=== PATIENT | female | born 1965 | race Caucasian/White ===

== ENCOUNTER 2019-01-22 02:44 | Emergency (ER) | payer SELFPAY ==
[2019-01-22 03:22] LABS: %Eosinophils 4.3 % (0.0-10.0); %Lymphocytes 45.4 % (21.0-51.0); %Monocytes 5.3 % (0.0-10.0); %Neutrophils 43.2 % (42.0-75.0); Hemoglobin 14.1 g/dL (12.0-16.0); Mean Corpuscular HGB CONC 32.1 g/dL (32.0-36.0); Mean Corpuscular Volume 80.8 fL (78.0-98.0); Mean Platelet Volume 10.3 fL (7.4-10.4); Platelet Count 240 thou/uL (130-400); RBC Distribution Width 13.4 % (11.5-14.5); Red Blood Cell (RBC) Count 5.43 mill/uL (4.20-5.40); White Blood Cell (WBC) Count 8.7 thou/uL (4.8-10.8)
[2019-01-22 03:23] LABS: #Basophils 0.2 thou/uL (0.0-0.2); #Eosinphils 0.4 thou/uL (0.0-0.7); #Monocytes 0.5 thou/uL (0.11-0.59); #Neutrophils 3.8 thou/uL (1.40-6.50); %Basophils 1.8 % (0.0-1.0)
[2019-01-22] MEDS ORDERED: Ondansetron PF 4 MG/2 ML Vial ONE (03:33)
[2019-01-22] MEDS ORDERED: Nitroglycerin 2% Ointment 1 INCH/1 GM Packet ONE (03:33)
[2019-01-22] MEDS ORDERED: Aspirin Chewable 81 MG TAB ONE (03:33)
[2019-01-22 03:45] LABS: Albumin 4.2 g/dL (3.5-5.0); Anion Gap 18 mmol/L (10-20); BUN (Urea Nitrogen) 11 mg/dL (9.8-20.1); Bilirubin, Total 0.3 mg/dL (0.2-1.2); Calc. Creatinine Clearance 0 mL/min (70-130); Calcium 9.8 mg/dL (7.8-10.44); Carbon Dioxide 23 mmol/L (22-29); Chloride 100 mmol/L (98-107); Estimated GFR-MDRD 64; Globulin 3.7 g/dL (2.4-3.5); Glucose 432 mg/dL (70-105); Potassium 4.1 mmol/L (3.5-5.1); Protein, Total 7.9 g/dL (6.0-8.3); Sodium 137 mmol/L (136-145)
[2019-01-22 03:46] LABS: ALT (SGPT) 18 U/L (8-55); AST (SGOT) 17 U/L (5-34); Alkaline Phosphatase 126 U/L (40-150)
[2019-01-22] MEDS ORDERED: Insulin Regular 300 UNITS/3 ML VIAL ONE ×2 (05:13→05:14)
--- NOTE | 2019-01-22 06:51 | CT ---
CTA CHEST WITH CONTRAST WITH 3D VOLUME RENDERING: Date: 01/22/19 Reference made to 08/28/18. INDICATION: Chest pain. FINDINGS: There is no significant filling defect of the pulmonary arteries. The thoracic aorta is normal in brenda iber. No evidence of consolidation, effusion, or pneumothorax. The osseous structures reveal degenera tive changes. IMPRESSION: No acute pulmonary embolus. POS: [facility]ANGK
[2019-01-22] MEDS ORDERED: Iopamidol 370 76% 125 ML VIAL FS ONE (11:44)
== END 2019-01-22 06:02 | disposition short-term general hospital (02) ==
LOC: MADERS 02:44
DX: I20.0 Unstable angina (principal); E11.65 Type 2 diabetes mellitus with hyperglycemia; I10 Essential (primary) hypertension; Z87.891 Personal history of nicotine dependence; Z79.899 Other long term (current) drug therapy; Z79.84 Long term (current) use of oral hypoglycemic drugs
CPT/HCPCS: 71275; 80053; 83880; 84484; 85025; 93005; 96374; J1815; J2405; Q9967

== ENCOUNTER 2019-01-28 03:33 | Emergency (ER) | payer SELFPAY ==
[2019-01-28] MEDS ORDERED: Lidocaine Viscous Sol 2% 15 ml UD Cup ONE (03:55)
[2019-01-28] MEDS ORDERED: Mag-Al Plus 1200 MG/1200 MG/120 MG/30 ML UDCUP ONE (03:55)
[2019-01-28 04:03] LABS: #Basophils 0.1 thou/uL (0.0-0.2); #Eosinphils 0.3 thou/uL (0.0-0.7); #Lymphocytes 3.3 thou/uL (1.20-3.40); #Monocytes 0.5 thou/uL (0.11-0.59); #Neutrophils 3.2 thou/uL (1.40-6.50); %Basophils 1.5 % (0.0-1.0); %Lymphocytes 44.8 % (21.0-51.0); %Monocytes 6.9 % (0.0-10.0); %Neutrophils 42.9 % (42.0-75.0); Hemoglobin 12.1 g/dL (12.0-16.0); Mean Corpuscular HGB CONC 34.3 g/dL (32.0-36.0); Mean Corpuscular Hemoglobin 27.3 pg (27.0-31.0); Mean Corpuscular Volume 79.6 fL (78.0-98.0); Mean Platelet Volume 9.3 fL (7.4-10.4); Platelet Count 230 thou/uL (130-400); Red Blood Cell (RBC) Count 4.45 mill/uL (4.20-5.40); White Blood Cell (WBC) Count 7.4 thou/uL (4.8-10.8)
[2019-01-28] MEDS ORDERED: Ondansetron PF 4 MG/2 ML Vial ONE (04:11)
[2019-01-28 04:20] LABS: ALT (SGPT) 7 U/L (8-55); AST (SGOT) 14 U/L (5-34); Albumin 3.8 g/dL (3.5-5.0); Alkaline Phosphatase 93 U/L (40-150); Anion Gap 17 mmol/L (10-20); BUN (Urea Nitrogen) 6 mg/dL (9.8-20.1); Bilirubin, Total 0.5 mg/dL (0.2-1.2); CK (CPK) 55 U/L (29-168); Calc. Creatinine Clearance 0 mL/min (70-130); Calcium 9.2 mg/dL (7.8-10.44); Carbon Dioxide 24 mmol/L (22-29); Chloride 102 mmol/L (98-107); Estimated GFR-MDRD 84; Globulin 3.2 g/dL (2.4-3.5); Glucose 225 mg/dL (70-105); Lipase 19 U/L (8-78); Sodium 140 mmol/L (136-145)
[2019-01-28] MEDS ORDERED: Aspirin 325 MG TAB ONE (04:34)
[2019-01-28 04:38] LABS: CKMB 0.7 ng/mL (0-6.6)
[2019-01-28 04:52] LABS: Potassium 2.9 mmol/L (3.5-5.1)
[2019-01-28] MEDS ORDERED: Potassium Chloride 20 MEQ TAB ONE (05:02)
--- NOTE | 2019-01-28 08:20 | RAD ---
CHEST ONE VIEW: HISTORY: Chest pain. COMPARISON: Radiograph from 08/28/2018. FINDINGS: The lungs are clear. No pneumothorax or effusion. The cardiac silhouette and mediastinal contours a re within normal limits. IMPRESSION: No acute intrathoracic abnormality. POS: CET
== END 2019-01-28 06:48 | disposition short-term general hospital (02) ==
LOC: MADERS 03:33
DX: R07.9 Chest pain, unspecified (principal); E87.6 Hypokalemia; E11.9 Type 2 diabetes mellitus without complications; I10 Essential (primary) hypertension
CPT/HCPCS: 71045; 80053; 82550; 82553; 83690; 84484; 85025; 85379; 96374; J2405